=== PATIENT | female | born 2000 | race Caucasian/White ===

== ENCOUNTER 2022-05-15 19:08 | Emergency (ER) | payer BC ==
[~2022-05-15] VITALS: Ht 167.6 cm; Wt 61.7 kg
[2022-05-15] MEDS ORDERED: FLOVENT HFA12 GM IH (19:38)
[2022-05-16] MEDS ORDERED: FLOVENT HFA12 G1 IH (00:58)
[2022-05-16] MEDS ORDERED: VENTOLIN HFA18 GM IH (00:58)
== END 2022-05-16 01:22 ==
LOC: ER 19:08
DX: B34.8 Other viral infections of unspecified site (principal); J11.1 Influenza due to unidentified influenza virus with other respiratory manifestations